=== PATIENT | male | born 1945 | race Caucasian/White ===

== ENCOUNTER 2018-04-20 15:36 | Emergency (ER) | payer BC, SELFPAY ==
[2018-04-20 15:37] VITALS: BP 109/64; PULSE 78; RESP 16; TEMP 36.4; O2SAT 95; BMI 38.8
--- NOTE | 2018-04-20 15:55 | RAD_ITS ---
STUDY: X-RAY - UNILATERAL RIBS ( LEFT ) WITH CHEST REASON FOR EXAM: Male, 73 years old. Slip and fall in the yard. Left-sided rib pain. TECHNIQUE - RIBS: 4 view(s) of the ribs. TECHNIQUE - CHEST: Single PA view of the chest. COMPARISON: None. FINDINGS - RIBS: Normal visualized ribs without a demonstrated fracture. FINDINGS - CHEST: There is slight rotation with questionable volume loss in the right lung. There are chronic interstitial changes without acute infiltrate or mass. There is no pneumothorax. There is no demonstrated pleural abnormality. Normal size heart. Normal mediastinum and jeremiah. Normal visualized pulmonary arteries. There is atherosclerotic calcification of the aortic arch with tortuosity. There are diffuse degenerative changes of the visualized thoracic spine. Normal visualized ribs, clavicles, and shoulders. There is no demonstrated abnormality of the visualized soft tissue structures of the upper abdomen. RAD/Ribs Uni Min 3V w/PA Chest IMPRESSION: RIBS: Normal x-ray examination of the ribs. CHEST: No acute cardiopulmonary disease. Electronically Signed: Jeremy Ceballos DO at 16:14 EDT Tel [phone], Service support ,
--- NOTE | 2018-04-20 16:25 | ED.VISSUMM ---
- ER Visit Summary Date of Service: 04/20/18 Chief Complaint: Rib pain History of Present Illness: The patient is a 73 M who presents after mechanical fall. About 3 hours before presentation he was stepping down from the porch onto the sidewalk. He got tangled in the dog's leash. He fell onto his left chest with his phone in his pocket and complains of pain in the left lower lateral chest. He was advised to be evaluated in the emergency department because he is undergoing chemotherapy. He denies any shortness of breath. He denies any other injuries. No head injury loss of consciousness or amnesia. Physical Examination: Afebrile vitals are normal Heart regular rate and rhythm Lungs are clear with equal breath sounds He does have some left lower lateral chest tenderness I do not appreciate any lacerations contusions abrasions hematomas or crepitus Test Results: Rib series with PA chest is normal. Emergency Department Course and Treatment: Patient advised on supportive care. He understands to return for new or worsening symptoms. He was discharged to follow-up as an outpatient as needed. Treatment Plan: [] Disposition: Discharge Impression: Chest wall contusion This note was generated with [employer] dictation software. It may contain incorrect words, spelling, and punctuation that were not noted in review of the chart prior to signing ED Disposition - Plan for ED Patient: Chief Complaint: Chest Other Referrals: Care Physician,No Primary [Primary Care Provider] -
--- NOTE | 2018-04-20 16:28 | ED.DEP ---
ED Disposition - Plan for ED Patient: Chief Complaint: Chest Other Instructions: ED Contusion Chest Wall Referrals: Care Physician,No Primary [Primary Care Provider] -
== END 2018-04-20 16:42 | disposition home or self-care (01) ==
PROVIDERS: Emergency Provider Emergency Medicine
DX: S20.212A Contusion of left front wall of thorax, initial encounter (principal); W17.89XA Other fall from one level to another, initial encounter; Y93.89 Activity, other specified; Y92.009 Unspecified place in unspecified non-institutional (private) residence as the place of occurrence of the external cause; I10 Essential (primary) hypertension; C34.90 Malignant neoplasm of unspecified part of unspecified bronchus or lung; Z79.899 Other long term (current) drug therapy
CPT/HCPCS: 71101; 99282

== ENCOUNTER 2018-05-03 18:54 | Emergency (ER) | payer BC, SELFPAY ==
[2018-05-03 18:57] VITALS: BP 69/52; PULSE 62; RESP 20; TEMP 36.8; O2SAT 93; BMI 39.4
[2018-05-03 19:19] VITALS: BP 109/62; PULSE 63; RESP 17; O2SAT 97
[2018-05-03] MEDS: 0.9% Normal Saline 1,000 ML 1000 ML IV (19:19)
[2018-05-03 19:47] LABS: Anion Gap 8 (5-15); BUN 33 mg/dL (7-18); BUN/Creat Ratio 27.3 RATIO (10-20); Calcium,Total 9.1 mg/dL (8.5-10.1); Chloride 102 mmol/L (98-107); Creatinine, Serum 1.21 mg/dL (0.70-1.30); EST Glomerular Filtration Rate 63 mL/min (>60); Est Glom Filt Rate - Afr Amer 76 mL/min (>60); Glucose 104 mg/dL (74-106); Sodium Level 136 mmol/L (136-145)
[2018-05-03 19:52] LABS: Absolute Lymphocyte Count 2.25 X10^3/ul (0.83-4.51); Absolute Neutrophil Count 34.3 X10^3/uL (2.0-7.7); Basophil# 0.01 X10^3/uL; Differential Indicated SCAN CRITERIA MET; Eosinophil# 0.19 X10^3/uL; Eosinophils% 0.5 % (0-5); Hematocrit 40.6 % (40-54); Hemoglobin 13.2 g/dl (13.0-16.5); Lymphocyte # 2.25 X10^3/ul (4.0); Lymphocyte % 6.1 % (19-41); Mean Corp Hgb Conc 32.5 g/gl (32-36); Mean Corpuscular Volume 89.2 fL (80-94); Monocyte% 0.8 % (0-10); Neutrophil # 34.26 X10^3/uL (2.7-7.7); Neutrophil % 92.3 % (47-70); POSITIVE COUNT YES; POSITIVE DIFFERENTIAL YES; POSITIVE MORPHOLOGY NO; Platelet Count 218 K/mm3 (150-450); RBC Distribution Width CV 18.8 % (11.6-14.6); RBC Distribution Width SD 58.1 fl (35.1-43.9); Red Blood Count 4.55 M/mm3 (4.6-6.2)
[2018-05-03 19:54] LABS: White Blood Count 37.1 K/mm3 (4.4-11.0)
--- NOTE | 2018-05-03 19:55 | ED.RN ---
WBC OF 37.1 REPORTED TO . VERBALIZED UNDERSTANDING
[2018-05-03 20:10] LABS: Differential Comment SCANNED
[2018-05-03 20:16] VITALS: BP 112/65; PULSE 68; RESP 14; O2SAT 94
--- NOTE | 2018-05-03 20:43 | ED.VISSUMM ---
- ER Visit Summary Date of Service: 05/03/18 Chief Complaint: Hypotension History of Present Illness: The patient is a 73 M who felt lightheaded and dizzy when standing today. He had chemotherapy most recently on April 30. Patient states with his prior chemo treatment he got low blood pressure and had to get a liter of IV fluids in the office. Patient denies syncope. He denies palpitations. Physical Examination: Vital signs on arrival include a blood pressure 69/52, temperature 98.2, heart rate 62, heart rate 20, pulse ox 93% on room air. At the time of my examination his blood pressure is 116/48. Head neck examination is unremarkable. Heart is regular rate and rhythm. Lung sounds are clear. Abdomen is soft and nontender. Neuro exam reveals no focal deficits. Test Results: CBC returned with a white count of 37.1 with 92% neutrophils. Patient did get a Neulasta shot 2 days ago. Chemistry studies reveal BUN of 33 and a creatinine 1.21. Emergency Department Course and Treatment: Patient received a liter of IV fluids here. He has been up ambulating to the restroom without difficulty and is remained asymptomatic. Blood pressures have maintained in the 1 teen range. He will be discharged home at this time with his . Treatment Plan: [] Disposition: Discharge Impression: Hypotension, improved This note was generated with [employer] dictation software. It may contain incorrect words, spelling, and punctuation that were not noted in review of the chart prior to signing ED Disposition - Plan for ED Patient: Chief Complaint: Hypotension Referrals: Robby Burt MD [Primary Care Provider] -
--- NOTE | 2018-05-03 20:45 | ED.DEP ---
ED Disposition - Plan for ED Patient: Disposition: Home or Assisted Living Chief Complaint: Hypotension Instructions: ED Hypotension All Causes, ED Dehydration Referrals: Robby Burt MD [Primary Care Provider] - Paulette Vazquez MD [STAFF PHYSICIAN] -
[2018-05-03 21:00] VITALS: BP 118/80; PULSE 61; RESP 18; O2SAT 95
[2018-05-04 12:08] LABS: Pathologist Review Reviewed
== END 2018-05-03 21:02 | disposition home or self-care (01) ==
PROVIDERS: Emergency Provider Emergency Medicine; Family Provider Internal Medicine; PCP Internal Medicine
DX: I95.9 Hypotension, unspecified (principal); C34.90 Malignant neoplasm of unspecified part of unspecified bronchus or lung; Z87.891 Personal history of nicotine dependence
CPT/HCPCS: 80048; 85025; 99285; J7030

== ENCOUNTER → 2018-05-16 10:20 | Outpatient (CLI) | payer BC, SELFPAY ==
[2018-05-16 11:26] LABS: Hematocrit 40.1 % (40-54); Hemoglobin 12.7 g/dl (13.0-16.5); Mean Corp Hgb Conc 31.7 g/gl (32-36); Mean Corpuscular Hgb 28.8 pg (27.0-32.0); Mean Corpuscular Volume 90.9 fL (80-94); Mean Platelet Vol. 10.6 fl (6.2-12.0); Platelet Count 160 K/mm3 (150-450); RBC Distribution Width CV 20.4 % (11.6-14.6); RBC Distribution Width SD 60.4 fl (35.1-43.9); Red Blood Count 4.41 M/mm3 (4.6-6.2); Scan Indicated on CBC? Y/N YES- FLAGS NOTED; White Blood Count 21.7 K/mm3 (4.4-11.0)
[2018-05-16 11:52] LABS: Anion Gap 8 (5-15); BUN 13 mg/dL (7-18); BUN/Creat Ratio 10.3 RATIO (10-20); Calcium,Total 9.9 mg/dL (8.5-10.1); Chloride 101 mmol/L (98-107); Cholesterol 122 mg/dL (200); Creatinine, Serum 1.26 mg/dL (0.70-1.30); EST Glomerular Filtration Rate 60 mL/min (>60); Est Glom Filt Rate - Afr Amer 73 mL/min (>60); Glucose 108 mg/dL (74-106); High Density Lipoprotein 35 mg/dL; Potassium 3.9 mmol/L (3.5-5.1); Sodium Level 139 mmol/L (136-145); Triglycerides 215 mg/dL; Very Low Density Lipoprotein 43 mg/dL (5-40)
[2018-05-16 11:57] LABS: Hemoglobin A1c 6.8 % (4.2-6.3)
[2018-05-17 16:06] LABS: Hepatitis C Ab 0.1 s/co ratio (0.0-0.9)
== END ==
PROVIDERS: Family Provider Internal Medicine; PCP Internal Medicine; Visit Provider Internal Medicine
DX: Z11.59 Encounter for screening for other viral diseases (principal); I95.9 Hypotension, unspecified; I10 Essential (primary) hypertension; J44.9 Chronic obstructive pulmonary disease, unspecified; R73.01 Impaired fasting glucose
CPT/HCPCS: 36415; 80048; 80061; 83036; 85027; 86803; 86804

== ENCOUNTER 2019-05-10 06:25 | Day surgery (SDC) | payer BC, SELFPAY ==
--- NOTE | 2019-05-07 18:44 | PCM.HP.BLA ---
History and Physical Date of Admission: 05/10/19 HISTORY AND PHYSICAL ? Alexander Tucker 1945 ? REFERRING PHYSICIAN: ??Robby Burt MD ? CHIEF COMPLAINT: ??Consult (Consult EGD/ Colonoscopy) ? HPI: The patient is a 74 year old male referred for endoscopy. ?Alexander notes no current colon complaints. ? The patient??denies abdominal pain but notes continued reflux CHINO symptoms for years. ? Alexander?has??undergone prior endoscopy. ?He had upper endoscopy performed 4 years ago which demonstrated esophagitis and suggested Crump's esophagitis. ?He notes he had multiple episodes of esophageal stenosis requiring esophageal dilatation. ?He notes some degree of dysphasia but nowhere near as bad as when he required esophageal dilatation in the past. ? He's had previous colonoscopies and last time at multiple polyps removed. ?Is recommended that he have follow-up colonoscopy. ? The patient has a history of lung cancer with a right upper lobe resection and mediastinal lymphadenectomy. ?He has a distant history of a antireflux surgical procedure area did he has a hernia artery disease, is on an oral anticoagulants and is obese. ? The patient is being seen by me today at the request of Dr.?Robby Burt MD?for my opinion and advice regarding history of Crump's esophagitis, esophageal dilatations of multiple colon polyps.? ? ? PAST?MEDICAL?HISTORY PAST MEDICAL HISTORY Diagnosis Date ? Ascending aorta dilatation (HCC) 05/01/2015 ? History: History of DM2, obestity (BMI 40), HTN, previous tobacco. ?12/03/2016- ?Echocardiogram. LVEF 60-65%. Mild concentric LV hypertrophy. LA severely dilated. Trace TR. Severely dilated ascending aorta (?5.8cm mid asceding - OSH report poor quality and cannot see the number clearly) Assessment: Stable size of enlarged AAA per CTA 12/05/17. ?Hemodynamically stable. Plan: -Blood pressure control. Goal systolic <?140 mmHg -Weight loss. Goal BMI <?30 -Continue follow up with Dr. Slade for surveillance of AAA ??. ? CAD (coronary artery disease) ? ? Class 3 severe obesity due to excess calories with serious comorbidity and body mass index (BMI) of 45.0 to 49.9 in adult (HCC) ? ? History: Preoperative BMI was 42.34. Worked up for bariatric surgery at outside hospital but denied due to age. Assessment: Body mass index is 39.07 kg/m?. Plan: ?- Assist patient to make healthy life choices ??. ? COPD (chronic obstructive pulmonary disease) (HCC) 02/25/2018 ? History: Ex smoker 19 pack years (quit 1983). Preop spirometry 01/30/18 showed moderate obstruction and no significant bronchodilator response (FVC 80% pred, FEV1 65% pred, DLCO 72%). Admitted 02/24/18 for elective right upper lung lobectomy for cancer. Was not on any home meds for COPD. Allergic reaction to hypertonic saline and albuterol neb 02/26/18 (tongue swelling, itchiness, facial swelling), stopped the inhalers/nebs. Assessment: 99% on 1.5 liters of oxygen at rest and 1 liter with exertioin Plan: ?-Ok per Dr. Jameson for BiPAP at night -Out of bed, cough, deep breathe, cornet (vibrPEP) hourly while awake, frequent ambulation. - Desat: room air at rest and 1 liter with exertioin . ?? ? GERD (gastroesophageal reflux disease) ? ? Glaucoma 02/25/2018 ? HTN (hypertension) ? ? 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 Malignant neoplasm of right upper lobe of lung (HCC) 02/24/2018 ? Myocardial infarct (HCC) ? ? Obesity, Class III, BMI 40-49.9 (morbid obesity) (HCC) 02/16/2015 ? BRIDGETTE intolerant of BIPAP 02/16/2015 ? Paroxysmal atrial fibrillation (HCC) 2009 ? eliquis ? Primary cancer of right upper lobe of lung (HCC) 03/19/2018 ? Pulmonary hypertension (HCC) ? ? Subcutaneous emphysema (HCC) 03/05/2018 ? ? PAST?SURGICAL?HISTORY PAST SURGICAL HISTORY Procedure Laterality Date ? ATRIAL FIBRILLATION/FLUTTER ABLATION ? 2011 ? COLONOS W/REM POLYP SNARE ? 2015 ? EGD - BALLOON DILATION <30MM ? 2015 ? I & D PILONIDAL CYST, SIMPLE ? 1971 ? LIZY HX ? 1989 ? REMOVAL OF LUNG,LOBECTOMY Right 02/24/2018 ? Right VATS upper lobe biopsy, Right VATS upper lobectomy, Mediastinal lymphadenectomy for Right upper lobe non-small cell lung cancer ? THYROIDECTOMY ? 1981 ? benign nodules removed x 2 ? ? CURRENT?MEDICATIONS ? Current Outpatient Medications: budesonide-formoterol (SYMBICORT) 160-4.5 mcg/actuation inhaler Inhale 2 Puffs as instructed twice daily. apixaban (ELIQUIS) 5 mg tab(s) Take 1 tablet by mouth twice daily. losartan-hydrochlorothiazide (HYZAAR) 100-25 mg per tablet Take 1 tablet by mouth once daily. Hold for blood pressure below 90 systolic. albuterol HFA (PROVENTIL HFA, VENTOLIN HFA) 90 mcg/actuation inhaler Inhale 2 Puffs as instructed four times daily as needed. FOR WHEEZING AND SHORTNESS OF BREATH. dorzolamide-timolol (COSOPT) 22.3-6.8 mg/mL ophthalmic solution Use 1 Drop in both eyes twice daily. acetaminophen (TYLENOL) 325 mg tablet Take 2 tablets by mouth every 4 hours as needed. FOLIC ACID/MULTIVIT-MIN/LUTEIN (CENTRUM SILVER ORAL) Take 1 tablet by mouth once daily. perflutren lipid microspheres (DEFINGarages2Envy) 1.1 mg/mL injection (to be provided with echo procedure) Inject 1.3 mL intravenously as directed. peg 3350-Electrolytes (GOLYTELY) 236-22.74-6.74 -5.86 gram suspension Take 4,000 mL by mouth one time only for 1 dose. Refer to printed prep instructions from your doctor. COMPOUNDED PRESCRIPTION Patient requires CPAP, 16 cm with 1 L O2 via medium Resmed Airfit F20 with a heated humidifier. DME: [facility]. COMPOUNDED PRESCRIPTION Please do PAP titration. Current setting ASV with PS 24, pressure support 20. COMPOUNDED PRESCRIPTION PAP Rx: PSV 10, EPAP 15, no back up rate. lansoprazole (PREVACID 24HR) 15 mg capsule Take 15 mg by mouth once daily. ? No current facility-administered medications for this visit.? ? ALLERGIES:?Sulfa (Sulfonamide Antibiotics) ? PERSONAL HISTORY:? SOCIAL?HISTORY Social History ??Socioeconomic History ?Marital status: ?Spouse name: Not on file ?Number of children: Not on file ?Years of education: Not on file ?Highest education level: Not on file ??Occupational History ?Not on file ??Social Needs ?Financial resource strain: Not on file ?Food insecurity: ?Worry: Not on file ?Inability: Not on file ?Transportation needs: ?Medical: Not on file ?Non-medical: Not on file ??Tobacco Use ?Smoking status: Former Smoker ?Packs/day: 2.00 ?Years: 19.00 ?Pack years: 38 ?Types: Cigarettes ?Start date: 12/16/1964 ?Quit date: 12/17/1983 ?Years since quittin.4 ?Smokeless tobacco: Never Used ??Substance and Sexual Activity ?Alcohol use: No ?Comment: 02/13/18: last drink 2014 ?Drug use: No ?Sexual activity: Not on file ??Lifestyle ?Physical activity: ?Days per week: Not on file ?Minutes per session: Not on file ?Stress: Not on file ??Relationships ?Social connections: ?Talks on phone: Not on file ?Gets together: Not on file ?Attends restorationist service: Not on file ?Active member of club or organization: Not on file ?Attends meetings of clubs or organizations: Not on file ?Relationship status: Not on file ?Intimate partner violence: ?Fear of current or ex partner: Not on file ?Emotionally abused: Not on file ?Physically abused: Not on file ?Forced sexual activity: Not on file ??Other Topics ?Concerns: ?Not on file ??Social History Narrative ?Not on file ? FAMILY HISTORY:? FAMILY?HISTORY FAMILY HISTORY Problem Relation Age of Onset ? Cancer Mother ?lung ? Hypertension Mother ? ? Diabetes Mother ? ? other (Other) Father ?killed in an industrial accident ? Aneurysm Brother ? ? other (Other) Brother ?AAA ? Cancer Maternal Grandmother ?colon ? Heart Daughter ?cardiomyopathy ? REVIEW OF SYMPTOMS: ??The review of systems data was entered by the nurse and reviewed by me ? Nursing Notes: René Petty FAN ?05/07/2019 ?1:11 PM ?Signed REVIEW OF SYSTEMS: ?General:???The patient denies fatigue, denies weight loss, denies weight gain, denies feeling hot, and denies feelings of cold. ?Eyes: ?The patient NOTES glaucoma, NOTES eye injury/surgery, wears glasses or contacts. ?Ear/Nose/Throat: ?The patient denies allergies, denies hayfever, denies ear infections, and denies bloody noses. ?Cardiovascular: ?The patient denies chest pain, denies heart disease, NOTES high blood pressure,denies cardiac stent, NOTES prior heart attack, denies irregular heart beat, denies high cholesterol, ?denies poor circulation, denies heart failure, other cardiac issues, denies claudication, denies cold feet, denies peripheral arterial stent. ?Respiratory: ?The patient denies tuberculosis, NOTES pneumonia, NOTES frequent cough, denies pulmonary embolism, NOTES shortness of breath, and denies coughing up blood. ?Gastrointestinal: ?The patient NOTES difficulty swallowing, NOTES acid reflux, NOTES ulcers, denies vomiting, denies jaundice/hepatitis, denies gallbladder problems, denies black or tarry stools, denies hemorrhoids, denies bleeding from rectum, denies diverticulitis, denies constipation, denies diarrhea, denies loss of stool control, and denies hernias. ?Kidney/Bladder: ?The patient denies kidney stones, denies urine infections, and denies bloody urine. ?Skin: ?The patient denies a history of skin cancer, denies bleeding/changing moles, and denies a history of skin rash. ?Neurologic: ?The patient denies a history of epilepsy/convulsions, denies headaches, denies head/spinal injuries, and denies stroke/TIA. ?Psychiatric: ?The patient denies psychiatric medications, denies depression, and denies voices, denies substance abuse. ?Endocrine: ?The patient NOTES thyroid disorders, NOTES diabetes, and denies hormonal problems. ?Hematologic: ?The patient NOTES a history of bruising, NOTES bleeding, and denies anemia, denies blood clots. ?Infections: ?The patient NOTES a history of measles and mumps, denies rheumatic fever, and denies sexually transmitted diseases. ?Musculoskeletal: ?The patient denies back pain/injury, denies back problems, NOTES sciatica, denies knee/foot trouble, NOTES arthritis, or denies gout. ? ? When was patient's last Mammogram screening? N/A ? ?Last Colonoscopy: ?Unknown ? René Petty LPN ? PHYSICAL EXAMINATION: ? General: ?The patient is 74 year old male, well nourished, well hydrated in no acute distress. ?The patient is oriented to time, place, and person. ? VITALS:?Blood pressure 116/74, pulse 67, temperature 36.3 ?C (97.4 ?F), temperature source Temporal Artery, height 175.3 cm (5' 9), weight 124.5 kg (274 lb 6.4 oz), SpO2 97 %.?Body mass index is 40.52 kg/m?.? ? HEENT: ?Normal cephalic, ataumatic, pupils are equally round, sclera are anicteric, mucous membranes are moist, oropharynx is clear. ?Neck has no masses, asymmetry or lymphadenopathy. ?Thyroid is unremarkable. ? Respiratory: ?Clear to auscultation and percussion. ?Normal respiratory excursion and pattern. ? Cardiac: ?Examination is regular rate and rhythm. ? Abdominal exam: ?Soft, nontender, ?with no palpable masses. ?No hepatosplenomegaly. ?No palpable hernias. ? Rectal exam:?exam deferred ? Extremities: ?no clubbing, cyanosis or edema. ?No adenopathy. ? Other: ? LABORATORY VALUES: As Noted ? RADIOLOGIC STUDIES: ?As Noted DATA REVIEW: DATE: 05/06/19 06/30/18 01/30/18 FVC 3.48?(84?% pred) 2.49?(64?% pred) 3.33?(80?% pred) FEV1 2.10?(69?% pred) 1.42?(50?% pred) +11 % post BD 1.99?(65?% pred) FEV1/FVC 0.60 0.57 0.59 ? Assessment ? IMPRESSION:?History of Crump's esophagitis, history of esophageal dilatation, history of colon polyps, medical comorbidities ? PLAN: ?I plan to perform upper and lower?endoscopy. ??We discussed the risks and benefits of the planned endoscopy. ?I have informed the patient that complications can occur including failure to complete the endoscopy and perforation. ?The patient had the opportunity to ask questions concerning the planned endoscopy. ?My staff has also explained the procedure to the patient in understandable terms and has given the patient printed material concerning the procedure. ?The patient freely consents to surgery. ? I plan to use golytely bowel preparation for endoscopy ? The patient has medical comorbidities for which I plan to perform the procedure under monitored anesthetic care. ? Diagnoses:?(K21.9) Gastroesophageal reflux disease, esophagitis presence not specified ?(primary encounter diagnosis) (Z86.010) Personal history of colonic polyps ? My findings have been communicated to Dr.??Robby Burt MD?via shared medical record. ?This note will be forwarded to Dr. Robby Burt MD. ?? Return to Clinic: The patient is instructed to follow-up with me?after the testing has been completed. ? Miki Velazquez MD
[2019-05-10 06:45] VITALS: BP 109/67; PULSE 53; RESP 14; TEMP 36.4; O2SAT 95; BMI 40.2
--- NOTE | 2019-05-10 07:30 | EGD_PTH ---
PATIENT: SOWMYA MEYER LOC: [facility] U#:[id number] AGE/SX: 74/M ROOM: RE05/10/[address]: Dr. Miki Velazquez MD : 1945 BED: DIS: 05/10/2019 SPEC #: [id number] RECD: 05/10/19 10:22 STATUS: NETTE HAVEN #: [id number] MANISHA: 05/10/19 07:[address]: Miki Velazquez DEPT: SURGICAL PATHOLOGY RECD BY: Mayra Sutton ENTERED: 05/10/19 12:04 SP TYPE: EGD BIOPSY OT DR: Dr. Robby Burt MD Tissues: A - Gastric mucous membrane B - Gastric mucous membrane C - Esophagus, NOS D - POLYP E - Sigmoid colon biopsy Procedures: Special Stain Group II Surgery Specimen Level IV Alcian Blue/PAS (control) HEADER OPERATION: Colonoscopy, EGD ([facility]) PRE-OP DIAGNOSIS: History Abelino's esophagus, esophageal dilation, history colon polyps TISSUE SUBMITTED: A. Antrum biopsy for H. pylori and path, B. GE junction biopsy, C. Distal esophagus biopsies, D. Biopsies and polypectomy of hepatic flexure polyp, E. Sigmoid polyp MICROSCOPIC DIAGNOSIS A. Gastric antrum, biopsy: Minimal chronic inflammation. B. Gastroesophageal junction, biopsy: Fragment of gastric mucosa with chronic inflammation. No evidence of intestinal metaplasia. See comment. C. Distal esophagus, biopsy: Gastroesophageal junctional mucosa with mild chronic inflammation. No evidence of intestinal metaplasia. See comment. D. Colonic polyp at hepatic flexure, biopsy: Fragments of tubular adenoma. See comment. E. Sigmoid colon polyp, biopsy: Fragments of cauterized superficial benign colonic mucosa. See comment. AM:nydia 05/11/19 COMMENT A. The results of immunohistochemistry for Helicobacter pylori will be reported separately ([id number]). B. Alcian blue/PAS stain with matched control supports the above diagnosis. C. Alcian blue/PAS stain with matched control supports the above diagnosis. D. The specimen also contains fecal debris. E. The specimen also contains fecal debris. MICROSCOPIC DESCRIPTION Slides are reviewed. GROSS DESCRIPTION A - Received in fixative is one container labeled with the patient's name and designated antrum biopsy. The specimen consists of one irregular fragment of light fernandez soft tissue that measures 0.5 x 0.3 x 0.1 cm. The specimen is totally submitted in one cassette. B - Received in fixative is one container labeled with the patient's name and designated GE junction. The specimen consists of one irregular fragment of light fernandez soft tissue that measures 0.2 x 0.2 x 0.1 cm. The specimen is totally submitted in one cassette. C - Received in fixative is one container labeled with the patient's name and designated esophagus biopsy. The specimen consists of two irregular fragments of light fernandez soft tissue that in aggregate measure 0.7 x 0.5 x 0.1 cm. The specimen is totally submitted in one cassette. D - Received in fixative is one container labeled with the patient's name and designated hepatic flexure polyp. The specimen consists of multiple irregular fragments of light fernandze soft tissue including fecal debris that in aggregate measure 2 x 0.5 x 0.1 cm. The specimen is totally submitted in one cassette. E - Received in fixative is one container labeled with the patient's name and designated sigmoid polyp. The specimen consists of multiple irregular fragments of light fernandez soft tissue including fecal debris that in aggregate measure 1 x 0.5 x <0.1 cm. The specimen is totally submitted in one cassette. / AM:nydia 05/10/19 TC:3 CPT: 84414 x5, 31889 x2
--- NOTE | 2019-05-10 07:30 | IMM_PTH ---
PATIENT: SOWMYA MEYER LOC: [facility] U#:[id number] AGE/SX: 74/M ROOM: RE05/10/[address]: Dr. Miki Velazquez MD : 1945 BED: DIS: 05/10/2019 SPEC #: [id number] RECD: 05/10/19 13:06 STATUS: NETTE REJade #: [id number] MANISHA: 05/10/19 07:[address]: Miki Velazquez DEPT: IMMUNOHISTOCHEMISTRY RECD BY: Raquel Markham ENTERED: 05/10/19 13:06 SP TYPE: IMMUNO OTHR DR: Dr. Robby Burt MD Tissues: A - Stomach, NOS Procedures: H Pylori (initial) PHYSICIAN & INSTITUTION [place] [id number] SPECIMEN INFORMATION: Tissue Source: A - Antrum biopsy Clinical Info: History Crump's esophagus, esophageal dilation, colon polyps Specimen Number: [id number] CPT code: 97539 METHODOLOGY: Deparaffinized sections of prefer/formalin-fixed tissue or PAP/DQ stained slides are incubated with monoclonal/polyclonal antibodies/oligonucleotide probes. Localization is made via biotin free immunoperoxidase method. Appropriate controls are performed and reacted as expected. Results on target cell population are indicated in the following table: RESULTS: ANTIBODY / CLONE RESULT Block A H Pylori (polyclonal) negative These tests were developed and their performance characteristics determined by [facility]. They may not have been cleared or approved by the U.S. Food and Drug Administration. The FDA has determined that such clearance or approval is not necessary. INTERPRETATION: A. Antrum biopsy: Negative for Helicobacter pylori organisms. AM:nydia 05/11/19
[2019-05-10 08:24] VITALS: BP 109/67; BP 94/52; PULSE 63; RESP 16; TEMP 36.5; O2SAT 95
--- NOTE | 2019-05-10 08:27 | OP.ENDO_ITS ---
05/10/2019 Robby Burt [address] [place] [address] Re : Upper GI endoscopy procedure for Alexander Tucker Dear Dr. Burt This procedure was performed on Friday, May 10, 2019. My impressions and recommendations are as follows: Impressions : - Normal examined jejunum. - Normal. - Normal stomach. Biopsied. - Esophageal mucosal changes suspicious for short-segment Crump's esophagus. Biopsied. Recommendations : - Await pathology results. - Return to physician elementary assistant teacher in 1 week. - Continue present medications. My findings are described in the full procedure note, which is enclosed. If I can be of further assistance, please feel free to contact me at Doctor phone number(s): , Work: . Sincerely, Miki Velazquez MD 05/10/2019 8:27:25 AM This report has been signed electronically.
--- NOTE | 2019-05-10 08:30 | OP.ENDO_ITS ---
05/10/2019 Robby Burt [address] [place] [address] Re : Colonoscopy procedure for Alexander Tucker Dear Dr. Burt This procedure was performed on Friday, May 10, 2019. My impressions and recommendations are as follows: Impressions : - Two small polyps in the sigmoid colon and at the hepatic flexure, removed with a hot snare. Resected and retrieved. - Diverticulosis in the sigmoid colon. - The examination was otherwise normal. - The distal rectum and anal verge are normal on retroflexion view. Recommendations : - Discharge patient to home. - Resume previous diet. - Continue present medications. - Repeat colonoscopy in 3 years for surveillance based on pathology results. - Return to physician bar assistant in 1 week. My findings are described in the full procedure note, which is enclosed. If I can be of further assistance, please feel free to contact me at Doctor phone number(s): , Work: . Sincerely, Miki Velazquez MD 05/10/2019 8:29:51 AM This report has been signed electronically.
[2019-05-10 08:31] VITALS: BP 109/67; BP 88/62; PULSE 68; RESP 14; O2SAT 9
[2019-05-10 08:38] VITALS: BP 109/67; BP 94/69; PULSE 60; RESP 16; O2SAT 94
[2019-05-10 08:40] VITALS: BP 102/62; BP 109/67; PULSE 62; RESP 14; TEMP 36.3; O2SAT 94
[2019-05-10 09:00] VITALS: BP 109/67
== END 2019-05-10 09:00 | disposition home or self-care (01) ==
LOC: EN 06:26 → AC 06:27
PROVIDERS: Family Provider Internal Medicine; PCP Internal Medicine; Referring Provider Internal Medicine; Visit Provider Surgery
PROC: 0DJD8ZZ Inspection of Lower Intestinal Tract, Via Natural or Artificial Opening Endoscopic (ICD-10-PCS; CPT 45378; principal; 2019-05-10 07:25)
DX: K21.9 Gastro-esophageal reflux disease without esophagitis (principal); Z86.010 Personal history of colon polyps; K57.30 Diverticulosis of large intestine without perforation or abscess without bleeding; D12.3 Benign neoplasm of transverse colon; D12.5 Benign neoplasm of sigmoid colon; I25.10 Atherosclerotic heart disease of native coronary artery without angina pectoris; I25.2 Old myocardial infarction; I27.20 Pulmonary hypertension, unspecified; I71.2 Thoracic aortic aneurysm, without rupture; I10 Essential (primary) hypertension; J44.9 Chronic obstructive pulmonary disease, unspecified; H40.9 Unspecified glaucoma; G47.33 Obstructive sleep apnea (adult) (pediatric); I48.0 Paroxysmal atrial fibrillation; E66.01 Morbid (severe) obesity due to excess calories; Z68.41 Body mass index [BMI] 40.0-44.9, adult; Z87.19 Personal history of other diseases of the digestive system; Z85.118 Personal history of other malignant neoplasm of bronchus and lung; Z79.899 Other long term (current) drug therapy; Z87.891 Personal history of nicotine dependence
CPT/HCPCS: 43239; 45385; 88305; 88313; 88342; J7120; J2405

== ENCOUNTER → 2022-04-10 | Outpatient (CLI) | payer BC, SELFPAY ==
[2022-04-10] VITALS (8 sets, daily range): BP systolic 125–155; BP diastolic 75–91; PULSE 57–74; RESP 16; TEMP 36.3–36.7; O2SAT 97–99; BMI 32.5
== END | disposition home or self-care (01) ==
LOC: MEDOUTP 07:31
PROVIDERS: PCP Internal Medicine; Referring Provider Internal Medicine Hematology & Oncology; Visit Provider Internal Medicine Hematology & Oncology
DX: Z51.89 Encounter for other specified aftercare (principal); D64.9 Anemia, unspecified
CPT/HCPCS: 36430; 86850; 86900; 86901; 86920; 86922; J7030; P9016; A4216

== ENCOUNTER → 2022-10-30 | Outpatient (CLI) | payer BC, SELFPAY ==
[2022-10-30 08:24] VITALS: BP 134/71; PULSE 61; RESP 16; TEMP 36.2; O2SAT 98; BMI 31.1
[2022-10-30 09:11] VITALS: BP 148/74; PULSE 59; RESP 18; TEMP 36.8; O2SAT 97
[2022-10-30 10:11] VITALS: BP 138/63; PULSE 56; RESP 16; TEMP 36.6
[2022-10-30 10:59] VITALS: BP 143/78; PULSE 58; RESP 16; TEMP 36.9
[2022-10-30 11:59] VITALS: BP 163/76; PULSE 51; RESP 16; TEMP 36.8
[2022-10-30 12:40] VITALS: BP 165/75; PULSE 58; RESP 16; TEMP 36.8; O2SAT 98
== END | disposition home or self-care (01) ==
PROVIDERS: PCP Internal Medicine; Referring Provider Internal Medicine; Visit Provider Internal Medicine
DX: D64.9 Anemia, unspecified (principal)
CPT/HCPCS: 36415; 36430; 86850; 86900; 86901; 86920; 86922; J7040; P9016; A4216